=== PATIENT | male | born 1985 | race Caucasian/White ===

== ENCOUNTER 2021-11-11 21:09 | Emergency (ER) | payer BC, OTHER ==
[~2021-11-11] VITALS: Ht 167.6 cm; Wt 71.8 kg
[2021-11-12 01:53] LABS: BASO # 0.1 10^3/uL (0.0-0.2); BASO % 0.6 % (0.0-1.0); EOS # 0.2 10^3/uL (0.0-0.5); HEMATOCRIT 45.1 % (42.0-52.0); HEMOGLOBIN 14.9 g/dl (13.5-17.5); LYMPH # 2.9 10^3/uL (1.5-5.0); LYMPH % 36.7 % (24.0-44.0); MEAN CORPUSCULAR HEMOGLOBIN 30.3 pg (27.0-33.0); MEAN CORPUSCULAR VOLUME 91.7 fl (80.0-96.0); MONO # 0.7 10^3/uL (0.0-0.8); MONO % 8.7 % (2.0-8.0); NEUTROPHILS # 4.1 10^3/uL (1.5-8.5); NEUTROPHILS % 51.6 % (36.0-66.0); PLATELET COUNT, AUTOMATED 236 10^3/uL (150-450); RED BLOOD COUNT 4.92 10^6/uL (4.30-6.10)
[2021-11-12 02:24] LABS: ALBUMIN 4.2 GM/DL (3.2-5.2); ALT/SGPT 34 U/L (12-78); BILIRUBIN,DIRECT 0.2 MG/DL (0.0-0.2); BILIRUBIN,TOTAL 0.6 MG/DL (0.2-1.0); BLOOD UREA NITROGEN 19 MG/DL (7-18); CALCIUM LEVEL 9.5 MG/DL (8.5-10.1); CARBON DIOXIDE LEVEL 27 MEQ/L (21-32); CHLORIDE LEVEL 105 MEQ/L (98-107); CREATININE FOR GFR 1.06 MG/DL (0.70-1.30); GLOMERULAR FILTRATION RATE > 60.0 (>60); GLUCOSE, FASTING 92 MG/DL (70-100); LIPASE 123 U/L (73-393); POTASSIUM SERUM 4.3 MEQ/L (3.5-5.1); SODIUM LEVEL 140 MEQ/L (136-145); TOTAL PROTEIN 7.6 GM/DL (6.4-8.2)
[2021-11-12] MEDS ORDERED: OMEP40CA4 PO (03:33)
[2021-11-12] MEDS ORDERED: CARA1TAB6 PO (03:33)
[2021-11-12] MEDS ORDERED: PEPC1TAB5 PO (03:33)
[2021-11-12] MEDS ORDERED: SUCRALFATE 1 GM TAB PO ONE (03:35)
[2021-11-12] MEDS ORDERED: OMEPRAZOLE 20MG CAP PO ONE (03:35)
[2021-11-12] MEDS ORDERED: FAMOTIDINE 20 MG TAB PO ONE (03:35)
[2021-11-12 03:48] VITALS: BP 111/68
== END 2021-11-12 03:49 | disposition home or self-care (01) ==
LOC: M ED 21:09
DX: K30 Functional dyspepsia (principal); Z79.899 Other long term (current) drug therapy

== ENCOUNTER 2023-02-27 03:58 | Emergency (ER) | payer OTHER ==
[~2023-02-27] VITALS: Ht 167.6 cm; Wt 71.6 kg
[~2023-02-27 03:58] MED LIST: CARA1TAB6 PO; OMEP40CA4 PO; PEPC1TAB5 PO
[2023-02-27 09:16] LABS: BASO # 0.1 10^3/uL (0.0-0.2); BASO % 1.2 % (0.0-1.0); EOS # 0.1 10^3/uL (0.0-0.5); EOS % 1.6 % (0.0-3.0); HEMATOCRIT 47.7 % (42.0-52.0); HEMOGLOBIN 15.9 g/dl (13.5-17.5); LYMPH # 1.8 10^3/uL (1.5-5.0); MEAN CORPUSCULAR HEMOGLOBIN 30.2 pg (27.0-33.0); MEAN CORPUSCULAR HGB CONC 33.3 g/dl (32.0-36.5); MEAN CORPUSCULAR VOLUME 90.7 fl (80.0-96.0); MONO # 0.5 10^3/uL (0.0-0.8); MONO % 8.1 % (2.0-8.0); NEUTROPHILS # 3.3 10^3/uL (1.5-8.5); NEUTROPHILS % 57.8 % (36.0-66.0); PLATELET COUNT, AUTOMATED 230 10^3/uL (150-450); RED BLOOD COUNT 5.26 10^6/uL (4.30-6.10); WHITE BLOOD COUNT 5.8 10^3/uL (4.0-10.0)
[2023-02-27 09:25] LABS: ERYTHROCYTE SEDIMENTATION RATE 9 mm/hr (0-15)
[2023-02-27 09:37] LABS: BLOOD UREA NITROGEN 18 MG/DL (9-23); C REACTIVE PROTEIN QUANTITATIV < 0.40 MG/DL (<1.0); CALCIUM LEVEL 9.6 MG/DL (8.5-10.1); CARBON DIOXIDE LEVEL 28 MMOL/L (20-31); CHLORIDE LEVEL 104 MMOL/L (98-107); GLOMERULAR FILTRATION RATE > 60.0 (>60); GLUCOSE, FASTING 97 MG/DL (60-100); POTASSIUM SERUM 4.2 MMOL/L (3.5-5.1); SODIUM LEVEL 139 MMOL/L (136-145)
[2023-02-27 09:40] LABS: FREE T4 1.03 NG/DL (0.89-1.76)
[2023-02-27] MEDS ORDERED: ISOVUE-370 76% 100ML VIAL As Ordered ONE (10:40)
[2023-02-27 11:51] VITALS: BP 103/68; TEMP 98.1; O2SAT 99
== END 2023-02-27 11:56 | disposition home or self-care (01) ==
LOC: M ED 03:58
DX: E03.0 Congenital hypothyroidism with diffuse goiter (principal)
CPT/HCPCS: 36415; 70491; 76536; 80048; 84439; 84443; 85025; 85652; 86140; 99284; Q9967

== ENCOUNTER → 2023-04-01 | Outpatient (REF) | payer OTHER | LOC: M SFHCDERM 17:46 | PROVIDERS: ATTEND Nurse Practitioner Family | DX: D49.2 Neoplasm of unspecified behavior of bone, soft tissue, and skin (principal) ==

== ENCOUNTER 2023-07-29 06:28 | Day surgery (SDC) | payer OTHER ==
[~2023-07-29] VITALS: Ht 167.6 cm; Wt 74.8 kg
[~2023-07-29 06:28] MED LIST changes: +FAMO1TAB11 PO; +OMEP-173 PO; +ROSU20TA61 PO; +VITA100093 PO
[2023-07-29] MEDS ORDERED: LIDOCAINE W/EPINEPHRINE 1% 20ML VIAL As Ordered ONE ×2 (06:42→07:56)
[2023-07-29] MEDS ORDERED: LIDOCAINE 1% SDV 5ML VIAL SC PRN (07:00)
[2023-07-29] MEDS ORDERED: LR 1,000 ML IV SCH ×2 (07:00→11:20)
[2023-07-29] MEDS ORDERED: metroNIDAZOLE 500 MG in IV 1 EA IV ONE (07:50)
[2023-07-29] MEDS ORDERED: CLINDAMYCIN 900 MG in IV 1 EA IV ONE (08:00)
[2023-07-29] MEDS ORDERED: ACETAMINOPHEN 1000MG 100ML IV BAG As Ordered ONE (08:28)
[2023-07-29] MEDS ORDERED: ONDANSETRON 4MG 2ML VIAL As Ordered ONE (08:28)
[2023-07-29] MEDS ORDERED: LIDOCAINE 2% 100MG/5ML SDV (FOR ANES.) As Ordered ONE (08:28)
[2023-07-29] MEDS ORDERED: SUGAMMADEX SODIUM 500 MG/5 ML VIAL (BRIDION) As Ordered ONE (08:28)
[2023-07-29] MEDS ORDERED: propofoL 200 MG/20 ML VIAL As Ordered ONE (08:28)
[2023-07-29] MEDS ORDERED: ROCURONIUM BROMIDE 50MG/5ML VIAL As Ordered ONE ×2 (08:28→09:35)
[2023-07-29] MEDS ORDERED: fentaNYL 250 MCG/5 ML INJECTION As Ordered ONE (08:28)
[2023-07-29] MEDS ORDERED: MIDAZOLAM INJ 2MG/2ML VIAL As Ordered ONE (08:28)
[2023-07-29] MEDS ORDERED: fentaNYL 100 MCG/2 ML INJECTION IV PRN (11:20)
[2023-07-29] MEDS ORDERED: ONDANSETRON 4MG 2ML VIAL IV PRN (11:20)
[2023-07-29] MEDS ORDERED: HYDROMORPHONE HCL 0.5 MG/ 0.5 ML SYRINGE IV PRN (11:20)
[2023-07-29] MEDS ORDERED: oxyCODONE 5MG TAB PO PRN (11:20)
[2023-07-29 12:40] VITALS: BP 116/58; TEMP 97.9; O2SAT 96
== END 2023-07-29 12:45 | disposition home or self-care (01) ==
LOC: M SDC 06:28
PROVIDERS: ATTEND Otolaryngology
DX: Q89.2 Congenital malformations of other endocrine glands (principal); E78.00 Pure hypercholesterolemia, unspecified; Z79.899 Other long term (current) drug therapy; K21.9 Gastro-esophageal reflux disease without esophagitis; Z90.49 Acquired absence of other specified parts of digestive tract; F17.290 Nicotine dependence, other tobacco product, uncomplicated
CPT/HCPCS: 60281; 87070; 87075; 88305; J0131; J0737; J1100; J2250; J2405; J3010